=== PATIENT | male | born 1995 | race African-American/Black ===

== ENCOUNTER 2018-03-18 13:52 | Emergency (ER) | payer OTHER ==
[~2018-03-18] VITALS: Ht 180.3 cm; Wt 68.2 kg
[~2018-03-18 13:52] MED LIST: DOXYCYCLINE 10100 MG PO; INSULIN HUMA100 U/ML SC; LANTUS100 U/ML SC; NEURONTIN800 MG/TAB PO; REQUIP2 MG PO; ROBAXIN 50500 MG/TAB PO
[2018-03-18 13:59] VITALS: TEMP 98.1
[2018-03-18 14:48] LABS: BASO % 0.5 % (0.0-2.0); EOS % 0.2 % (0-4.0); GRAN # 2.4 (1.4-6.5); GRAN % 56.8 % (42.2-75.2); HEMATOCRIT 39.3 % (42.0-52.0); HEMOGLOBIN 14.2 g/dl (13.5-18.0); LYMPH # 1.4 (1.2-3.4); LYMPH % 33.8 % (20.0-51.0); MEAN CELL VOLUME 84 fl (80.0-100.0); MEAN CORPUSCULAR HEMOGLOBIN 30 pg (27.0-31.0); MEAN CORPUSCULAR HGB CONC 36 g/dl (33.0-37.0); MEAN PLATELET VOLUME 10.1 fl (7.4-10.4); MONO # 0.4 (0.1-0.6); MONO % 8.5 % (1.7-9.3); PLATELET COUNT 344 K/mm3 (130-400); RED BLOOD COUNT 4.67 M/mm3 (4.20-5.60)
[2018-03-18 14:59] LABS: ALANINE AMINOTRANSFERASE 22 U/L (21-72); ALBUMIN 3.7 gm/dL (3.5-5.0); ALKALINE PHOSPHATASE 111 U/L (50-136); ANION GAP 12 mmol/L (7-16); AST,SGOT 17 U/L (15-37); BILIRUBIN,TOTAL 0.4 mg/dL (0.0-1.0); BLOOD UREA NITROGEN 8 mg/dL (9-20); C-REACTIVE PROTEIN 0.6 mg/dL (0.0-0.9); CALCIUM 8.6 mg/dL (8.4-10.2); CARBON DIOXIDE 26 mmol/L (22-30); CHLORIDE 91 mmol/L (98-107); CREATININE, serum 0.47 mg/dL (0.66-1.25); POTASSIUM 3.4 mmol/L (3.4-5.0); SODIUM 129 mmol/L (137-145); TOTAL PROTEIN 6.5 gm/dL (6.4-8.2)
[2018-03-18 15:06] LABS: GLUCOSE 570 mg/dL (74-106)
[2018-03-18 15:07] LABS: ACETONE,SERUM NEGATIVE
[2018-03-18] MEDS ORDERED: NOVOLOG 100U100 U/M1 SQ (17:20)
[2018-03-18 17:30] LABS: COLLECTION METHOD CLEAN CATCH
[2018-03-18 17:39] LABS: PH 7 (5-8); SQUAMOUS EPITHELIAL 0-2 /hpf; URINE APPEARANCE Clear; URINE BACTERIA None Seen /hpf; URINE BILIRUBIN Negative (NEGATIVE); URINE BLOOD Negative (NEGATIVE); URINE COLOR Straw; URINE GLUCOSE 3+ (NEGATIVE); URINE KETONE Trace (NEGATIVE); URINE LEUKOCYTE ESTERASE Negative (NEGATIVE); URINE NITRATE Negative (NEGATIVE); URINE PROTEIN(semi-quant) Negative (NEGATIVE); URINE RBC 0-2 /hpf; URINE UROBILINOGEN Negative (NEGATIVE)
[2018-03-18] MEDS ORDERED: PHENERGAN 25 TA25 MG PO (17:41)
[2018-03-18 18:07] VITALS: BP 155/104; PULSE 110
== END 2018-03-18 18:07 | disposition home or self-care (01) ==
LOC: COL.ER 13:52
PROVIDERS: Physician Assistant
DX: K29.70 Gastritis, unspecified, without bleeding (principal); E11.9 Type 2 diabetes mellitus without complications; Z79.4 Long term (current) use of insulin; Z88.0 Allergy status to penicillin; F17.210 Nicotine dependence, cigarettes, uncomplicated
CPT/HCPCS: C9113; J1815; J7030

== ENCOUNTER → 2018-04-15 | Outpatient (CLI) | payer OTHER ==
[~2018-04-15] MED LIST changes: +NOVOLOG 100U100 U/M1 SQ; +PHENERGAN 25 TA25 MG PO
[2018-04-15 17:16] LABS: CALCIUM 9.5 mg/dL (8.4-10.2); CREATININE, serum 0.59 mg/dL (0.66-1.25); POTASSIUM 4.7 mmol/L (3.4-5.0)
== END ==
LOC: COL.LAB 14:53
PROVIDERS: Family Medicine
DX: R00.0 Tachycardia, unspecified (principal)

== ENCOUNTER 2018-08-18 11:44 | Emergency (ER) | payer OTHER ==
[~2018-08-18] VITALS: Ht 180.3 cm; Wt 73.2 kg
[2018-08-18 11:48] VITALS: TEMP 99.2
[2018-08-18] MEDS ORDERED: LEVEMIR100 U/ML SQ (12:07)
[2018-08-18] MEDS ORDERED: DOXYCYCLINE 10100 MG PO (12:10)
[2018-08-18] MEDS ORDERED: DOXYCYCLINE HY100 MG PO ×2 (12:19)
[2018-08-18] MEDS ORDERED: CEPHALEXIN500 M1 PO (12:30)
[2018-08-18 12:39] VITALS: BP 122/79; PULSE 100
== END 2018-08-18 12:40 | disposition home or self-care (01) ==
LOC: COL.ER 11:44
DX: K13.0 Diseases of lips (principal); E10.40 Type 1 diabetes mellitus with diabetic neuropathy, unspecified; F17.210 Nicotine dependence, cigarettes, uncomplicated; Z88.0 Allergy status to penicillin

== ENCOUNTER 2018-11-27 21:59 | Inpatient (IN) | payer OTHER ==
[~2018-11-27] VITALS: Ht 180.3 cm; Wt 71.9 kg
[~2018-11-27 21:59] MED LIST changes: +CEPHALEXIN500 M1 PO; +DOXYCYCLINE HY100 MG PO; +LEVEMIR100 U/ML SQ
[2018-11-28 00:18] LABS: BASO % 0.3 % (0.0-2.0); EOS % 0.2 % (0-4.0); GRAN # 8.9 (1.4-6.5); GRAN % 75.5 % (42.2-75.2); HEMOGLOBIN 15.3 g/dl (13.5-18.0); LYMPH # 1.9 (1.2-3.4); MEAN CELL VOLUME 90 fl (80.0-100.0); MEAN CORPUSCULAR HEMOGLOBIN 30 pg (27.0-31.0); MEAN CORPUSCULAR HGB CONC 34 g/dl (33.0-37.0); MEAN PLATELET VOLUME 10.4 fl (7.4-10.4); MONO # 0.9 (0.1-0.6); MONO % 7.7 % (1.7-9.3); PLATELET COUNT 322 K/mm3 (130-400); RED BLOOD COUNT 5.03 M/mm3 (4.20-5.60); REDCELL DISTRIBUTION WIDTH-CV 11.8 % (11.5-14.5)
[2018-11-28 00:33] LABS: ALANINE AMINOTRANSFERASE < 6 U/L (21-72); ALBUMIN 4.2 gm/dL (3.5-5.0); ALKALINE PHOSPHATASE 132 U/L (50-136); ANION GAP 17 mmol/L (7-16); AST,SGOT 17 U/L (15-37); BILIRUBIN,TOTAL 1.5 mg/dL (0.0-1.0); BLOOD UREA NITROGEN 26 mg/dL (9-20); C-REACTIVE PROTEIN 3.4 mg/dL (0.0-0.9); CALCIUM 9.4 mg/dL (8.4-10.2); CARBON DIOXIDE 22 mmol/L (22-30); CHLORIDE 93 mmol/L (98-107); CREATININE, serum 0.59 (0.66-1.25); GLUCOSE 374 mg/dL (74-106); POTASSIUM 4.4 mmol/L (3.4-5.0); SODIUM 132 mmol/L (137-145)
[2018-11-28 00:39] LABS: ACETONE,SERUM SMALL
[2018-11-28] MEDS ORDERED: CYMBALTA 30MG30 MG PO (01:14)
[2018-11-28 02:00] LABS: ARTERIAL BLD GAS O2 SATURATION 95.4 % (92-100); ARTERIAL BLOOD GAS BASE EXCESS -5.7 (-2-2); ARTERIAL BLOOD GAS HCO3 19.8 meq/L (22-26); ARTERIAL BLOOD GAS PCO2 38.8 mmHg (35-45); ARTERIAL BLOOD GAS PO2 87.3 mmHg (80-100); ARTERIAL BLOOD GAS pH 7.33 (7.35-7.45)
[2018-11-28 03:26] VITALS: BP 143/98; PULSE 121; TEMP 98.6
[2018-11-28 04:00] VITALS: BP 121/79; PULSE 120; TEMP 98.6
[2018-11-28 04:27] LABS: CALCIUM 8.7 mg/dL (8.4-10.2); CREATININE, serum 0.51 (0.66-1.25); MAGNESIUM 1.6 mg/dL (1.6-2.3); PHOSPHOROUS 3.9 mg/dL (2.5-4.5)
[2018-11-28 06:23] LABS: CALCIUM 8.4 mg/dL (8.4-10.2); CREATININE, serum 0.51 (0.66-1.25); POTASSIUM 4.4 mmol/L (3.4-5.0)
--- NOTE | 2018-11-28 07:32 | NUR ---
gave report to jorge garcia.
[2018-11-28 08:04] LABS: CALCIUM 8.6 mg/dL (8.4-10.2); CREATININE, serum 0.51 (0.66-1.25); POTASSIUM 4.4 mmol/L (3.4-5.0)
[2018-11-28 08:30] VITALS: BP 122/84; PULSE 118; TEMP 98.6
[2018-11-28 10:07] LABS: CALCIUM 8.5 mg/dL (8.4-10.2); CREATININE, serum 0.48 (0.66-1.25); POTASSIUM 4.3 mmol/L (3.4-5.0)
[2018-11-28 12:00] VITALS: BP 113/74; PULSE 114; TEMP 98.4
--- NOTE | 2018-11-28 12:01 | NUR ---
First visit from the community outreach coordinator. No needs right now.
--- NOTE | 2018-11-28 13:26 | NUR ---
SW attended clinical rounds to discuss discharge planning. Patient lives independently at home with his family. Patient's PCP is Dr Anyi Domingo and he obtain prescriptions from [facility]. Patient does not use DME or home health. Patient does not have a DPOA-HC and is not interested in completing one at this time. SW does not anticipate any discharge needs.
--- NOTE | 2018-11-28 13:38 | NUR ---
Pt resting in bed on right sided and prone position stating that thos positions are most comfortable d/t absess on his back. Denies pain anywhere else. Sx Consult called and , Dr. Stanley will be by to see patient. HR had been elevated, 110's, other VSS. Dr. Stephens restarted IVF NS at 100ml/hr for poss dehydration. Insulin gtt stopped and d/caryn and pt currently on sliding scale, has not required coverage and diet added. Mother currently at bedside. Will continue to moitor, pt status and update provder as needed.
--- NOTE | 2018-11-28 14:56 | NUR ---
Report given to YUDY Austin on SX unit. Pt Nicko taking out of fridge and will be handed to recieving RN. Aside from HR 107, VSS, pt c/o pain in left lower back and pain meds given and reported to recieving RN.
--- NOTE | 2018-11-28 15:20 | NUR ---
PATIENT ADMITED INTO ROOM 326 FROM ICU. PATIENT IS A&O. VSS. PATIENT REPORTS MILD DISCOMFORT AND WAS GIVEN IV DILAUDID BEFORE TRANSFER TO FLOOR. PATIENT INDEPENDENT IN ROOM. IV VANCO INFUSING. BS 87. ADA DIET. ORIENTED TO ROOM. CALL LIGHT IN REACH. NO FAMILY AT BEDSIDE.
[2018-11-28 16:11] VITALS: BP 114/68; PULSE 114; TEMP 98
--- NOTE | 2018-11-28 19:45 | NUR ---
Pt. sitting up in bed at this time. Pt. is A&OX3, assessment complete. INT to rt. and lt. forearms. Both sites patent. Pt. reports pain at a 8 on pain scale. Will give pain meds when available. Pt. voices understanding. Pt. denies further needs, call light within reach.
[2018-11-28 20:00] VITALS: BP 121/72; PULSE 113; TEMP 97.9
[2018-11-28 22:31] LABS: COLLECTION METHOD CLEAN CATCH
[2018-11-28 22:37] LABS: MUCOUS Present /lpf; PH 5 (5-8); SQUAMOUS EPITHELIAL 0-2 /hpf; URINE APPEARANCE Clear; URINE BACTERIA None Seen /hpf; URINE BILIRUBIN Negative (NEGATIVE); URINE BLOOD Negative (NEGATIVE); URINE COLOR Yellow; URINE GLUCOSE 3+ (NEGATIVE); URINE KETONE 2+ (NEGATIVE); URINE LEUKOCYTE ESTERASE Negative (NEGATIVE); URINE NITRATE Negative (NEGATIVE); URINE PROTEIN(semi-quant) Negative (NEGATIVE); URINE RBC 0-2 /hpf
[2018-11-29] VITALS: BP 135/72; PULSE 110; TEMP 98
[2018-11-29 00:41] LABS: COLLECTION METHOD CLEAN CATCH
[2018-11-29 00:47] LABS: MUCOUS Present /lpf; PH 6 (5-8); SQUAMOUS EPITHELIAL None Seen /hpf; URINE APPEARANCE Clear; URINE BACTERIA Rare /hpf; URINE BILIRUBIN Negative (NEGATIVE); URINE BLOOD Negative (NEGATIVE); URINE COLOR Yellow; URINE GLUCOSE 3+ (NEGATIVE); URINE KETONE Trace (NEGATIVE); URINE LEUKOCYTE ESTERASE Negative (NEGATIVE); URINE NITRATE Negative (NEGATIVE); URINE PROTEIN(semi-quant) Negative (NEGATIVE); URINE RBC 0-2 /hpf; URINE WBC 0-2 /hpf
[2018-11-29 04:00] VITALS: BP 115/69; PULSE 108; TEMP 97.7
--- NOTE | 2018-11-29 05:44 | NUR ---
Pt. slept off and on through the night. Pt. remains A&OX3. INT to bilateral forearms patent. Pt. has received pain meds through the night, see mar. Pt. also ambulated the halls x2, independently. Pt. reports pain at a 4 at this time. Pt. denies further needs, call light within reach.
[2018-11-29 06:16] LABS: BASO % 0.4 % (0.0-2.0); EOS % 0.7 % (0-4.0); GRAN # 3.6 (1.4-6.5); GRAN % 64.5 % (42.2-75.2); LYMPH # 1.5 (1.2-3.4); MEAN CELL VOLUME 90 fl (80.0-100.0); MEAN CORPUSCULAR HGB CONC 34 g/dl (33.0-37.0); MEAN PLATELET VOLUME 10.5 fl (7.4-10.4); MONO # 0.5 (0.1-0.6); PLATELET COUNT 287 K/mm3 (130-400); RED BLOOD COUNT 4.04 M/mm3 (4.20-5.60); REDCELL DISTRIBUTION WIDTH-CV 11.4 % (11.5-14.5)
[2018-11-29 06:19] LABS: HEMOGLOBIN 12.3 g/dl (13.5-18.0); MEAN CORPUSCULAR HEMOGLOBIN 30 pg (27.0-31.0)
[2018-11-29 06:20] LABS: HEMATOCRIT 36.3 % (42.0-52.0)
[2018-11-29 06:25] LABS: CALCIUM 8.9 mg/dL (8.4-10.2); CREATININE, serum 0.51 (0.66-1.25); POTASSIUM 4.5 mmol/L (3.4-5.0)
--- NOTE | 2018-11-29 06:40 | NUR ---
appears to be dozing, awakens easily, bedside shift report received from YUDY Triana
--- NOTE | 2018-11-29 07:25 | NUR ---
c/o pain to back and along left side 03/04, medicated with dilaudid 0.5mg slow IV, full assessment completed, see interventions for further info, will wait a while to order breakfast, denies further needs
[2018-11-29 08:24] VITALS: BP 100/50; PULSE 106; TEMP 97.4
[2018-11-29 08:50] LABS: COLLECTION METHOD CLEAN CATCH
[2018-11-29 08:55] LABS: MUCOUS Present /lpf; PH 6 (5-8); SQUAMOUS EPITHELIAL None Seen /hpf; URINE APPEARANCE Clear; URINE BACTERIA None Seen /hpf; URINE BILIRUBIN Negative (NEGATIVE); URINE BLOOD Negative (NEGATIVE); URINE COLOR Yellow; URINE GLUCOSE 3+ (NEGATIVE); URINE KETONE Negative (NEGATIVE); URINE LEUKOCYTE ESTERASE Negative (NEGATIVE); URINE NITRATE Negative (NEGATIVE); URINE PROTEIN(semi-quant) Negative (NEGATIVE); URINE RBC None Seen /hpf; URINE UROBILINOGEN Negative (NEGATIVE); URINE WBC 0-2 /hpf
--- NOTE | 2018-11-29 09:23 | NUR ---
resting in bed and denies needs
--- NOTE | 2018-11-29 10:30 | NUR ---
beginning to c/o pain to left back and side, medicated with hydrocodone 5mg 2 tabs
--- NOTE | 2018-11-29 10:46 | NUR ---
Dr. Stephens and care team in to see patient, patient is up and about in room independently and ready to eat breakfast
--- NOTE | 2018-11-29 11:30 | NUR ---
up and ambulating in delacruz
--- NOTE | 2018-11-29 12:15 | NUR ---
Dr Stanley was in and removed packing from abscess area on left back, area is now repacked with 1/4 inch iodoform gauze and covered with telfa gauze, he c/os of pain to this area after physicians in and were palpating and assessing the area, medicated with dilaudid 0.5mg slow IV,
[2018-11-29 12:23] VITALS: BP 118/78; PULSE 114; TEMP 97.5
--- NOTE | 2018-11-29 12:33 | NUR ---
bllod sugar was 96 and given juice per his request
--- NOTE | 2018-11-29 14:50 | NUR ---
resting in bed looking at his phone, denies needs
--- NOTE | 2018-11-29 15:45 | NUR ---
appears to now be sleeping, in bed with lights off, eyes closed, resp quiet and easy
[2018-11-29 16:46] VITALS: BP 120/75; PULSE 109; TEMP 97.7
--- NOTE | 2018-11-29 17:16 | NUR ---
sitting up in bed ready to eat supper, insulin given as ordered
--- NOTE | 2018-11-29 19:11 | NUR ---
bedside shift report given to YUDY Damon
[2018-11-29 19:42] VITALS: BP 119/71; PULSE 112; TEMP 97.5
--- NOTE | 2018-11-29 20:59 | NUR ---
Shift assessment complete. Pt resting in bed, awake, a&o, cooperative c cares. Pt c/o continued pain to L flank abcess; recent pain aviation medicine specialist, will monitor. Abcess noted to L flank, dressing intact c mod drainge present, will change dressing per order. INT x2 patent. Pt denies any other needs or c/o. Call light in reach, will monitor.
[2018-11-30] VITALS: BP 120/72; PULSE 103; TEMP 98.3
--- NOTE | 2018-11-30 06:15 | NUR ---
Pt resting in bed, condition unchanged. Pt has had persistant pain rated 5-7/10 this shift, reports "these pain meds ain't helping like they used too" pt also states "I think that (abcess) needs drained again". Pt frequently req PRN pain medication. Pt has had few other requests. Dressing changed at 2300 last noc et remains C/D/I at this time. Denies needs at this time. Call light in reach.
--- NOTE | 2018-11-30 07:55 | NUR ---
sitting up in bed eating breakfast, c/o pain 02/01 and medicated with dilaudid 0.5mg slow IV
[2018-11-30 08:08] LABS: BASO % 0.6 % (0.0-2.0); EOS # 0.1 (0.0-0.7); EOS % 1.2 % (0-4.0); GRAN # 2.6 (1.4-6.5); GRAN % 49.5 % (42.2-75.2); HEMATOCRIT 34.8 % (42.0-52.0); HEMOGLOBIN 11.8 g/dl (13.5-18.0); LYMPH # 2.1 (1.2-3.4); LYMPH % 41.5 % (20.0-51.0); MEAN CELL VOLUME 90 fl (80.0-100.0); MEAN CORPUSCULAR HEMOGLOBIN 31 pg (27.0-31.0); MEAN CORPUSCULAR HGB CONC 34 g/dl (33.0-37.0); MEAN PLATELET VOLUME 10.2 fl (7.4-10.4); MONO # 0.4 (0.1-0.6); PLATELET COUNT 308 K/mm3 (130-400); RED BLOOD COUNT 3.87 M/mm3 (4.20-5.60); REDCELL DISTRIBUTION WIDTH-CV 11.7 % (11.5-14.5)
[2018-11-30 08:15] LABS: CREATININE, serum 0.48 (0.66-1.25)
[2018-11-30 08:27] VITALS: BP 118/64; PULSE 113; TEMP 98.7
--- NOTE | 2018-11-30 08:37 | NUR ---
full assessment completed, see interventions for further info, states relief from dilaudid
--- NOTE | 2018-11-30 10:07 | NUR ---
entered room and patietn states he feels like his blood sugar is low, blood sugar obtained and results are 68, will provide juice and pudding per his request
--- NOTE | 2018-11-30 10:40 | NUR ---
had juice and pudding and is feeling better now
--- NOTE | 2018-11-30 11:30 | NUR ---
Dr Stephens and care team in to see patient
[2018-11-30 12:03] VITALS: BP 136/90; PULSE 112; TEMP 98.2
[2018-11-30] MEDS ORDERED: NOVOLOG 100U100 U/M1 SQ (12:03)
[2018-11-30] MEDS ORDERED: LEVEMIR100 U/ML SQ (12:04)
--- NOTE | 2018-11-30 12:28 | NUR ---
c/o pain and medicated with hydrocodone 5mg 2 tabs, will plan discharge later
--- NOTE | 2018-11-30 14:00 | NUR ---
continues to c/o pain, medicated with dilaudid 0.5mg slow IV, dressing and packing to back removed, repacked and redressed with anthony ratliff, tolerated well
[2018-11-30] MEDS ORDERED: MONODOX100 PO (14:39)
[2018-11-30] MEDS ORDERED: NORCO 325 MG-51 TAB PO (14:46)
--- NOTE | 2018-11-30 16:10 | NUR ---
in bed and appears to be dozing, awakens easily and denies needs
--- NOTE | 2018-11-30 16:15 | NUR ---
has been sleeping and awake now, will have supper and then plan discharge, denies needs
[2018-11-30 16:21] VITALS: BP 149/96; PULSE 110; TEMP 98.2
--- NOTE | 2018-11-30 16:59 | NUR ---
sitting up and eating supper, c/o some pain and medicated with hydrocodone 5mg 2 tabs and also in anticipation of discharge
--- NOTE | 2018-11-30 17:30 | NUR ---
ready for discharge, discharge instructions given to patient, verbalizes understanding, discharged ambulatory
[2018-12-01] MEDS ORDERED: ATARAX 25MG25 MG/TAB PO (21:09)
[2018-12-01] MEDS ORDERED: CLEOCIN HCL300 MG PO (21:10)
== END 2018-11-30 17:30 | disposition home or self-care (01) | DRG 602 ==
LOC: COL.ER 21:59 → SURG 11-28 01:52 → ICU 11-28 01:52 → SURG 11-28 15:13
PROVIDERS: Emergency Medicine; Nurse Practitioner Family; Physician Assistant; ADMIT Hospitalist
DX: L02.212 Cutaneous abscess of back [any part, except buttock and flank] (principal); E11.10 Type 2 diabetes mellitus with ketoacidosis without coma; L03.312 Cellulitis of back [any part except buttock and flank]; Z79.4 Long term (current) use of insulin; F32.9 Major depressive disorder, single episode, unspecified; F17.210 Nicotine dependence, cigarettes, uncomplicated; Z88.0 Allergy status to penicillin; R00.0 Tachycardia, unspecified; E11.65 Type 2 diabetes mellitus with hyperglycemia
CPT/HCPCS: 99223-AI; 99232-AI; 99239; J1170; J1650; J1815; J2405; J3370; J3480; J7030; J7050

== ENCOUNTER 2018-12-01 18:46 | Emergency (ER) | payer OTHER ==
[~2018-12-01] VITALS: Ht 180.3 cm; Wt 72.7 kg
[~2018-12-01 18:46] MED LIST changes: +CYMBALTA 30MG30 MG PO; +MONODOX100 PO; +NORCO 325 MG-51 TAB PO
[2018-12-01 18:49] VITALS: TEMP 98
[2018-12-01 19:16] LABS: BASO % 0.4 % (0.0-2.0); EOS % 0.6 % (0-4.0); GRAN # 3.1 (1.4-6.5); GRAN % 59.3 % (42.2-75.2); HEMATOCRIT 37.9 % (42.0-52.0); LYMPH # 1.8 (1.2-3.4); MEAN CELL VOLUME 89 fl (80.0-100.0); MEAN CORPUSCULAR HEMOGLOBIN 30 pg (27.0-31.0); MEAN CORPUSCULAR HGB CONC 34 g/dl (33.0-37.0); MEAN PLATELET VOLUME 10.2 fl (7.4-10.4); MONO # 0.3 (0.1-0.6); MONO % 5.5 % (1.7-9.3); PLATELET COUNT 368 K/mm3 (130-400); RED BLOOD COUNT 4.27 M/mm3 (4.20-5.60); REDCELL DISTRIBUTION WIDTH-CV 11.6 % (11.5-14.5)
[2018-12-01 19:20] LABS: ALBUMIN 3.4 gm/dL (3.5-5.0); BILIRUBIN,TOTAL 0.3 mg/dL (0.0-1.0); CALCIUM 9.1 mg/dL (8.4-10.2); CREATININE, serum 0.46 (0.66-1.25); POTASSIUM 3.9 mmol/L (3.4-5.0); TOTAL PROTEIN 6.7 gm/dL (6.4-8.2)
[2018-12-01] MEDS ORDERED: ATARAX 25MG25 MG/TAB PO (21:09)
[2018-12-01] MEDS ORDERED: CLEOCIN HCL300 MG PO (21:10)
[2018-12-01 21:21] VITALS: BP 134/88; PULSE 112
== END 2018-12-01 21:23 | disposition home or self-care (01) ==
LOC: COL.ER 18:46
PROVIDERS: Emergency Medicine
DX: L29.9 Pruritus, unspecified (principal); M79.89 Other specified soft tissue disorders; E11.9 Type 2 diabetes mellitus without complications; F17.210 Nicotine dependence, cigarettes, uncomplicated; Z79.4 Long term (current) use of insulin
CPT/HCPCS: J1885

== ENCOUNTER 2019-01-17 17:41 | Emergency (ER) | payer OTHER ==
[~2019-01-17] VITALS: Ht 180.3 cm; Wt 72.7 kg
[~2019-01-17 17:41] MED LIST changes: +ATARAX 25MG25 MG/TAB PO; +CLEOCIN HCL300 MG PO
[2019-01-17 17:52] VITALS: TEMP 98.5
[2019-01-17] MEDS ORDERED: NORCO 325 MG-51 TAB PO (18:15)
[2019-01-17] MEDS ORDERED: DOXYCYCLINE 10100 MG PO (18:15)
[2019-01-17 18:29] VITALS: BP 103/77; PULSE 127
== END 2019-01-17 18:32 | disposition home or self-care (01) ==
LOC: COL.ER 17:41
DX: L02.212 Cutaneous abscess of back [any part, except buttock and flank] (principal); E11.9 Type 2 diabetes mellitus without complications; F17.210 Nicotine dependence, cigarettes, uncomplicated; Z79.4 Long term (current) use of insulin

== ENCOUNTER → 2019-08-30 | Outpatient (CLI) | payer OTHER ==
[2019-08-30 18:37] LABS: BASO % 0.2 % (0.0-2.0); EOS % 0.4 % (0-4.0); GRAN # 2.7 (1.4-6.5); GRAN % 60.1 % (42.2-75.2); HEMATOCRIT 46.1 % (42.0-52.0); HEMOGLOBIN 15.5 g/dl (13.5-18.0); LYMPH # 1.5 (1.2-3.4); LYMPH % 33.2 % (20.0-51.0); MEAN CELL VOLUME 90 fl (80.0-100.0); MEAN CORPUSCULAR HEMOGLOBIN 30 pg (27.0-31.0); MEAN CORPUSCULAR HGB CONC 34 g/dl (33.0-37.0); MEAN PLATELET VOLUME 11.7 fl (7.4-10.4); MONO # 0.3 (0.1-0.6); MONO % 5.7 % (1.7-9.3); PLATELET COUNT 327 K/mm3 (130-400); RED BLOOD COUNT 5.14 M/mm3 (4.20-5.60); REDCELL DISTRIBUTION WIDTH-CV 11.9 % (11.5-14.5)
[2019-08-30 18:42] LABS: CALCIUM 9.5 mg/dL (8.4-10.2); CREATININE, serum 0.54 (0.66-1.25); POTASSIUM 4.8 mmol/L (3.4-5.0)
== END ==
LOC: ZCOL.LAB 16:33
PROVIDERS: Physician Assistant
DX: R51 Headache (principal)

== ENCOUNTER 2019-11-14 13:20 | Emergency (ER) | payer OTHER ==
[~2019-11-14] VITALS: Ht 182.9 cm; Wt 72.7 kg
[2019-11-14 13:31] VITALS: TEMP 98
[2019-11-14 14:06] LABS: BASO % 0.3 % (0.0-2.0); EOS # 0.2 (0.0-0.7); EOS % 2.5 % (0-4.0); GRAN # 4.4 (1.4-6.5); GRAN % 68.7 % (42.2-75.2); LYMPH # 1.5 (1.2-3.4); LYMPH % 23.8 % (20.0-51.0); MEAN CELL VOLUME 85 fl (80.0-100.0); MEAN CORPUSCULAR HEMOGLOBIN 30 pg (27.0-31.0); MEAN CORPUSCULAR HGB CONC 35 g/dl (33.0-37.0); MEAN PLATELET VOLUME 10.2 fl (7.4-10.4); MONO # 0.3 (0.1-0.6); MONO % 4.4 % (1.7-9.3); PLATELET COUNT 288 K/mm3 (130-400); RED BLOOD COUNT 5.05 M/mm3 (4.20-5.60); REDCELL DISTRIBUTION WIDTH-CV 11.8 % (11.5-14.5)
[2019-11-14 14:16] LABS: ACETONE,SERUM SMALL
[2019-11-14 14:19] LABS: ALANINE AMINOTRANSFERASE 19 U/L (4-49); ALBUMIN 4.2 gm/dL (3.5-5.0); ALKALINE PHOSPHATASE 94 U/L (50-136); ANION GAP 12 mmol/L (7-16); AST,SGOT 33 U/L (15-37); BILIRUBIN,TOTAL 2.1 mg/dL (0.0-1.0); BLOOD UREA NITROGEN 30 mg/dL (9-20); CARBON DIOXIDE 22 mmol/L (22-30); CHLORIDE 92 mmol/L (98-107); CREATININE, serum 0.53 (0.66-1.25); GLUCOSE 311 mg/dL (74-106); POTASSIUM 4.2 mmol/L (3.4-5.0); SODIUM 127 mmol/L (137-145); TOTAL PROTEIN 7.3 gm/dL (6.4-8.2)
[2019-11-14 14:25] LABS: COLLECTION METHOD CLEAN CATCH
[2019-11-14 14:27] LABS: C-REACTIVE PROTEIN < 0.5 mg/dL (0.0-0.9); TROPONIN-I < 0.012 ng/mL (0.000-0.035)
[2019-11-14 14:42] LABS: MUCOUS Present /lpf; PH 5 (5-8); SQUAMOUS EPITHELIAL 0-2 /hpf; URINE APPEARANCE Clear; URINE BACTERIA None Seen /hpf; URINE BILIRUBIN Negative (NEGATIVE); URINE BLOOD Negative (NEGATIVE); URINE COLOR Yellow; URINE GLUCOSE 3+ (NEGATIVE); URINE KETONE 2+ (NEGATIVE); URINE LEUKOCYTE ESTERASE Trace (NEGATIVE); URINE NITRATE Negative (NEGATIVE); URINE PROTEIN(semi-quant) Negative (NEGATIVE); URINE UROBILINOGEN Negative (NEGATIVE)
[2019-11-14] MEDS ORDERED: CYMBALTA 60MG60 MG PO (15:14)
[2019-11-14] MEDS ORDERED: ZOFRAN 4MG T4 MG/TAB PO (15:34)
[2019-11-14] MEDS ORDERED: PROTONIX 40MG T40 MG PO (16:44)
[2019-11-14 17:11] VITALS: BP 112/69; PULSE 107
== END 2019-11-14 17:15 | disposition home or self-care (01) ==
LOC: COL.ER 13:20
PROVIDERS: Emergency Medicine
DX: R11.2 Nausea with vomiting, unspecified (principal); R19.7 Diarrhea, unspecified; E86.0 Dehydration; E11.65 Type 2 diabetes mellitus with hyperglycemia; R10.11 Right upper quadrant pain; R10.12 Left upper quadrant pain; R10.31 Right lower quadrant pain; R10.32 Left lower quadrant pain; F17.210 Nicotine dependence, cigarettes, uncomplicated
CPT/HCPCS: J1790; J1815; J2405; J3010; J7030

== ENCOUNTER 2020-10-01 17:08 | Emergency (ER) | payer OTHER ==
[~2020-10-01] VITALS: Ht 182.9 cm; Wt 72.7 kg
[~2020-10-01 17:08] MED LIST changes: +CYMBALTA 60MG60 MG PO; +PROTONIX 40MG T40 MG PO; +ZOFRAN 4MG T4 MG/TAB PO
[2020-10-01 17:32] VITALS: TEMP 98.7
[2020-10-01 18:22] LABS: BASO % 0.2 % (0.0-2.0); GRAN # 3.9 (1.4-6.5); GRAN % 68.5 % (42.2-75.2); HEMOGLOBIN 13.9 g/dl (13.5-18.0); LYMPH # 1.5 (1.2-3.4); LYMPH % 26.3 % (20.0-51.0); MEAN CELL VOLUME 88 fl (80.0-100.0); MEAN CORPUSCULAR HEMOGLOBIN 31 pg (27.0-31.0); MEAN CORPUSCULAR HGB CONC 35 g/dl (33.0-37.0); MEAN PLATELET VOLUME 10.2 fl (7.4-10.4); MONO # 0.3 (0.1-0.6); MONO % 4.8 % (1.7-9.3); PLATELET COUNT 322 K/mm3 (130-400); RED BLOOD COUNT 4.56 M/mm3 (4.20-5.60); REDCELL DISTRIBUTION WIDTH-CV 11.4 % (11.5-14.5)
[2020-10-01 18:34] LABS: ALBUMIN 3.7 gm/dL (3.5-5.0); BILIRUBIN,TOTAL 1.3 mg/dL (0.0-1.0); CALCIUM 8.5 mg/dL (8.4-10.2); CREATININE, serum 0.61 (0.66-1.25); POTASSIUM 3.9 mmol/L (3.4-5.0); TOTAL PROTEIN 6.6 gm/dL (6.4-8.2)
[2020-10-01 20:27] LABS: COLLECTION METHOD CLEAN CATCH
[2020-10-01 20:37] LABS: MUCOUS Present /lpf; PH 6 (5-8); SQUAMOUS EPITHELIAL 0-2 /hpf; URINE APPEARANCE Clear; URINE BACTERIA None Seen /hpf; URINE BILIRUBIN Negative (NEGATIVE); URINE BLOOD Negative (NEGATIVE); URINE COLOR Yellow; URINE GLUCOSE 3+ (NEGATIVE); URINE KETONE 2+ (NEGATIVE); URINE LEUKOCYTE ESTERASE Negative (NEGATIVE); URINE NITRATE Negative (NEGATIVE); URINE PROTEIN(semi-quant) 1+ (NEGATIVE); URINE RBC 0-2 /hpf; URINE UROBILINOGEN Negative (NEGATIVE)
[2020-10-02 00:23] VITALS: BP 159/102; PULSE 114
== END 2020-10-02 00:23 | disposition home or self-care (01) ==
LOC: COL.ER 17:08
PROVIDERS: Nurse Practitioner
DX: R11.2 Nausea with vomiting, unspecified (principal); R10.10 Upper abdominal pain, unspecified; E10.9 Type 1 diabetes mellitus without complications; M54.5 Low back pain; R55 Syncope and collapse; Z88.6 Allergy status to analgesic agent; Z88.0 Allergy status to penicillin; Z20.822 Contact with and (suspected) exposure to COVID-19
CPT/HCPCS: J1170; J2270; J2405; J2550; J7030

== ENCOUNTER 2021-09-10 16:38 | Emergency (ER) | payer MEDICAID ==
[~2021-09-10] VITALS: Ht 180.3 cm; Wt 72.7 kg
[2021-09-10 16:53] VITALS: TEMP 99.5
[2021-09-10 17:24] LABS: BASO % 0.4 % (0.0-2.0); EOS % 0.4 % (0.0-4.0); GRAN # 2.8 K/mm3 (1.4-6.5); GRAN % 52.1 % (42.2-75.2); HEMATOCRIT 37.6 % (42.0-52.0); HEMOGLOBIN 13.2 g/dl (13.5-18.0); LYMPH # 2.3 K/mm3 (1.2-3.4); LYMPH % 41.9 % (20.0-51.0); MEAN CELL VOLUME 89 fl (80.0-100.0); MEAN CORPUSCULAR HEMOGLOBIN 31 pg (27-31); MEAN CORPUSCULAR HGB CONC 35 g/dl (33.0-37.0); MEAN PLATELET VOLUME 9.9 fl (7.4-10.4); MONO # 0.3 K/mm3 (0.1-0.6); PLATELET COUNT 273 K/mm3 (130-400); RED BLOOD COUNT 4.24 M/mm3 (4.20-5.60)
[2021-09-10 17:55] LABS: ACETONE,SERUM NEGATIVE
[2021-09-10 18:08] LABS: ALANINE AMINOTRANSFERASE 23 U/L (0-55); ALKALINE PHOSPHATASE 100 U/L (40-150); ANION GAP 13 mmol/L (7-16); AST,SGOT 19 U/L (5-34); BILIRUBIN,TOTAL 1.1 mg/dL (0.2-1.2); BLOOD UREA NITROGEN 16 mg/dL (9-21); CALCIUM 9.3 mg/dL (8.4-10.2); CARBON DIOXIDE 26 mmol/L (22-29); CHLORIDE 98 mmol/L (98-107); CREATININE, serum 1.08 mg/dL (0.72-1.25); GLUCOSE 79 mg/dL (70-99); LIPASE 18 U/L (8-78); POTASSIUM 3.7 mmol/L (3.5-4.5); SODIUM 137 mmol/L (136-145); TOTAL PROTEIN 7.3 gm/dL (6.2-8.1)
[2021-09-10 22:00] VITALS: BP 142/89; PULSE 108
== END 2021-09-10 22:00 | disposition home or self-care (01) ==
LOC: COL.ER 16:38
PROVIDERS: Emergency Medicine
DX: M54.6 Pain in thoracic spine (principal); L91.0 Hypertrophic scar; E11.9 Type 2 diabetes mellitus without complications; F17.210 Nicotine dependence, cigarettes, uncomplicated
CPT/HCPCS: J3010; J7030

== ENCOUNTER 2021-11-07 08:11 | Day surgery (SDC) | payer MEDICAID ==
[~2021-11-07] VITALS: Ht 180.3 cm; Wt 76.3 kg
[2021-11-07] MEDS ORDERED: NOVOLIN R100 UNIT/1 SQ (09:27)
[2021-11-07] MEDS ORDERED: LANTUS SOLOS100 U/ML SQ (09:28)
[2021-11-07 10:30] VITALS: BP 108/62; PULSE 103
[2021-11-07 10:45] VITALS: BP 129/87; PULSE 102
[2021-11-07 11:00] VITALS: BP 141/101; PULSE 103
[2021-11-07 11:15] VITALS: BP 142/106; PULSE 103
--- NOTE | 2021-11-07 11:27 | NUR ---
1030 Pt returns from endo procedure via cart and RN assist to [facility] [place] [facility]. Pt ambulates from cart to recliner with RN assist. Monitors on and alarms set. Call light within reach. Report received from YUDY Morales. Pt alert and oriented. Pt requests water. Pt denies any pain or nausea. Pt's mom present in room. 1045 Pt taking drink well. No complications noted. 1125 Discharge instructions given to pt and pt's mom. All questions answered to their satisfaction. Handed to pt are a thank you card and discharge information. 1127 Pt transferred out of the hospital via wheelchair and this RN assist, to private vehicle driven by pt's mom.
[2021-11-07 16:23] VITALS: BP 153/96; PULSE 107; TEMP 98.6
== END 2021-11-07 11:27 | disposition home or self-care (01) ==
LOC: SDCO 08:11
DX: K52.9 Noninfective gastroenteritis and colitis, unspecified (principal); R11.2 Nausea with vomiting, unspecified; E11.43 Type 2 diabetes mellitus with diabetic autonomic (poly)neuropathy; K31.84 Gastroparesis; Z79.4 Long term (current) use of insulin; Z79.899 Other long term (current) drug therapy
CPT/HCPCS: J2704; J7030

== ENCOUNTER 2022-01-15 10:40 | Emergency (ER) | payer MEDICAID ==
[~2022-01-15] VITALS: Ht 182.9 cm; Wt 77.3 kg
[~2022-01-15 10:40] MED LIST changes: +LANTUS SOLOS100 U/ML SQ; +NOVOLIN R100 UNIT/1 SQ
[2022-01-15 11:08] VITALS: TEMP 98.4
[2022-01-15 12:42] LABS: BASO % 0.4 % (0.0-2.0); GRAN % 74.7 % (42.2-75.2); HEMOGLOBIN 12.8 g/dl (13.5-18.0); LYMPH # 1.1 K/mm3 (1.2-3.4); LYMPH % 19.9 % (20.0-51.0); MEAN CELL VOLUME 89 fl (80.0-100.0); MEAN CORPUSCULAR HEMOGLOBIN 31 pg (27-31); MEAN CORPUSCULAR HGB CONC 35 g/dl (33.0-37.0); MEAN PLATELET VOLUME 10.4 fl (7.4-10.4); MONO # 0.2 K/mm3 (0.1-0.6); MONO % 4.3 % (1.7-9.3); PLATELET COUNT 304 K/mm3 (130-400); RED BLOOD COUNT 4.14 M/mm3 (4.20-5.60); REDCELL DISTRIBUTION WIDTH-CV 11.5 % (11.5-14.5)
[2022-01-15 13:11] LABS: ALBUMIN 4.2 gm/dL (3.5-5.0); BILIRUBIN,TOTAL 1.4 mg/dL (0.2-1.2); CALCIUM 9.3 mg/dL (8.4-10.2); CREATININE, serum 1.09 mg/dL (0.72-1.25); POTASSIUM 3.9 mmol/L (3.5-4.5)
[2022-01-15 14:00] VITALS: BP 166/93
[2022-01-15] MEDS ORDERED: ZOFRAN ODT4 MG PO (14:33)
[2022-01-15 15:07] VITALS: PULSE 119
[2022-01-17] MEDS ORDERED: COMPAZINE 110 MG/TAB PO (15:58)
[2022-01-17] MEDS ORDERED: CARAFATE S1 GM/10 ML PO (15:58)
== END 2022-01-15 15:07 | disposition home or self-care (01) ==
LOC: COL.ER 10:40
PROVIDERS: Nurse Practitioner Primary Care
DX: S10.93XA Contusion of unspecified part of neck, initial encounter (principal); R11.2 Nausea with vomiting, unspecified; F17.210 Nicotine dependence, cigarettes, uncomplicated; Z28.310 Unvaccinated for COVID-19; W10.9XXA Fall (on) (from) unspecified stairs and steps, initial encounter
CPT/HCPCS: J0780; J1885; J2405; J2550; J7030

== ENCOUNTER 2022-02-10 21:50 | Inpatient (IN) | payer MEDICAID ==
[~2022-02-10] VITALS: Ht 182.9 cm; Wt 75.8 kg
[~2022-02-10 21:50] MED LIST changes: +CARAFATE S1 GM/10 ML PO; +COMPAZINE 110 MG/TAB PO; +ZOFRAN ODT4 MG PO
[2022-02-10 22:12] LABS: BASO % 0.3 % (0.0-2.0); GRAN # 5.3 K/mm3 (1.4-6.5); GRAN % 80.2 % (42.2-75.2); LYMPH # 1.1 K/mm3 (1.2-3.4); LYMPH % 16.8 % (20.0-51.0); MEAN CELL VOLUME 87 fl (80.0-100.0); MEAN CORPUSCULAR HEMOGLOBIN 31 pg (27-31); MEAN CORPUSCULAR HGB CONC 36 g/dl (33.0-37.0); MEAN PLATELET VOLUME 10.7 fl (7.4-10.4); MONO # 0.2 K/mm3 (0.1-0.6); MONO % 2.4 % (1.7-9.3); PLATELET COUNT 320 K/mm3 (130-400); RED BLOOD COUNT 3.86 M/mm3 (4.20-5.60)
[2022-02-10 22:16] LABS: HEMATOCRIT 33.4 % (42.0-52.0)
[2022-02-10 22:31] LABS: BILIRUBIN,TOTAL 1.2 mg/dL (0.2-1.2); CALCIUM 9.1 mg/dL (8.4-10.2); TOTAL PROTEIN 7.4 gm/dL (6.2-8.1)
[2022-02-11] MEDS ORDERED: PROTONIX20 MG PO (02:29)
[2022-02-11 03:22] LABS: COLLECTION METHOD CLEAN CATCH
[2022-02-11 03:29] LABS: MUCOUS Present (NOT PRESENT); PH 5 (5-8); SQUAMOUS EPITHELIAL None Seen /hpf (0-10); URINE APPEARANCE Clear (CLEAR/HAZY); URINE BACTERIA None Seen /hpf (NONE SEEN); URINE BLOOD Negative (NEGATIVE); URINE COLOR Yellow (YELLOW); URINE GLUCOSE 3+ (NEGATIVE); URINE KETONE 2+ (NEGATIVE); URINE NITRATE Negative (NEGATIVE); URINE PROTEIN(semi-quant) Negative (NEGATIVE); URINE RBC 0-2 /hpf (0-2); URINE UROBILINOGEN Negative (NEGATIVE)
[2022-02-11 03:35] LABS: TRICYCLIC ANTIDEPRESS URINE NEGATIVE
--- NOTE | 2022-02-11 04:30 | NUR ---
pt admitted to room 308 per cart accompanied by client technologies analyst, able to ambulate from delacruz to bed. IV present in LAC with NS infusing @125 cc/hr. pt c/o continued nausea even after meds given in ED. zofran 4mg given slow IVP. oriented to room, floor and plan of care. Irma GREENE, notified of glucose level of 330 in ED. is working on admission orders @this time.
[2022-02-11 04:35] VITALS: BP 125/68; PULSE 112; TEMP 98.8
--- NOTE | 2022-02-11 06:51 | NUR ---
6 units of IV insulin given x1 for BGM 332, SSI orders on chart
[2022-02-11 07:14] LABS: BASO % 0.1 % (0.0-2.0); GRAN # 7.9 K/mm3 (1.4-6.5); GRAN % 84.2 % (42.2-75.2); HEMOGLOBIN 10.3 g/dl (13.5-18.0); LYMPH # 1.2 K/mm3 (1.2-3.4); MEAN CELL VOLUME 91 fl (80.0-100.0); MEAN CORPUSCULAR HEMOGLOBIN 31 pg (27-31); MEAN CORPUSCULAR HGB CONC 34 g/dl (33.0-37.0); MEAN PLATELET VOLUME 11.1 fl (7.4-10.4); MONO # 0.2 K/mm3 (0.1-0.6); MONO % 2.5 % (1.7-9.3); PLATELET COUNT 270 K/mm3 (130-400); RED BLOOD COUNT 3.37 M/mm3 (4.20-5.60); REDCELL DISTRIBUTION WIDTH-CV 11.6 % (11.5-14.5)
[2022-02-11 07:16] LABS: HEMATOCRIT 30.6 % (42.0-52.0)
[2022-02-11 07:28] LABS: CALCIUM 8.1 mg/dL (8.4-10.2); CREATININE, serum 0.95 mg/dL (0.72-1.25); MAGNESIUM 1.6 mg/dL (1.6-2.6); POTASSIUM 4.2 mmol/L (3.5-4.5)
[2022-02-11 07:59] VITALS: BP 114/61; PULSE 110; TEMP 98.7
--- NOTE | 2022-02-11 11:39 | NUR ---
well service floor worker met with patient to complete intake and discuss discharge plan. Patient reports that he lives at home with his grandparents in [place]. Patient reports that he is independent with his ADL's but is legally blind and utilizes a white cane to assist with mobility. Patient has no home oxygen needs. Patient reports that he is still seeing doctor Nabila Mendoza for PCP needs. Patient utilizes [facility] for prescriptions. Patient states that he does have a DPOA-HC established and it is his grandmother Gail ([phone]). Patient is planning on returning home once medically ready. Discharge plan: Home with grandparents
[2022-02-11 11:50] VITALS: BP 159/91; PULSE 120; TEMP 99.3
--- NOTE | 2022-02-11 14:51 | NUR ---
PATIENT ALERT AND ORIENTED X3. VSS WITH THE EXCEPTION OF TACHYCARDIA. PATIENT REPORTS HE MIGHT BE SLIGHTLY DEHYDRATED. PATIENT ENCOURAGED TO DRINK MORE FLUIDS. ASSESSMENT PERFORMED. AM MEDS ADMINISTERED. PATIENT REPORTS PAIN IN THROAT FROM CONTINUOUS VOMITING. PATIENT REQUESTS MEDICATION NOT ON EMAR FOR NAUSEA/VOMITING. IV TO LEFT AC FLUSHES WELL, HAS NS RUNNING AT 125/HOUR. PATIENT ON ROOM AIR. CALL LIGHT WITHIN REACH.
[2022-02-11 15:18] VITALS: BP 150/86; PULSE 113; TEMP 98.1
[2022-02-11 20:25] VITALS: BP 168/96; PULSE 119; TEMP 98.6
--- NOTE | 2022-02-11 21:00 | NUR ---
pt c/o epigastric and throat pain, HR >100, notified Elisha Shahid APRN, see EMAR for meds given.
[2022-02-11 22:55] VITALS: BP 189/115; PULSE 118; TEMP 98
--- NOTE | 2022-02-12 00:20 | NUR ---
2330-BP 189/115 notified Elisha Crain APRN order rec'd and gave 10mg IV Labetolol, BP down to 121/67 after 30 mins.
[2022-02-12 00:28] VITALS: BP 121/67
[2022-02-12 04:22] VITALS: BP 131/63; PULSE 106; TEMP 98.2
--- NOTE | 2022-02-12 06:56 | NUR ---
pt c/o epigastric and throat pain all shift, rates as 10, maalox and morphine given, bp improved after labetelol, SSI given last evening. phenergan given x1 for nausea. up ad arturo in room, on RA. IVF infusing @125cc/hr per piv.
[2022-02-12 07:49] VITALS: BP 136/87; PULSE 110; TEMP 98.4
--- NOTE | 2022-02-12 09:31 | NUR ---
PATIENT COMPLAINING OF ABDOMINAL PAIN THAT HE DESCRIBES A BURNING SENSATION ALL OVER. ALSO COMPLAINING OF NAUSEA AND VOMITING. PRN MEDICATIONS TO TREAT THIS HAVE BEEN GIVEN PER EMAR WITH NO RELIEF. WILL NOTIFY HOSPITALIST.
[2022-02-12 11:53] VITALS: BP 156/106; PULSE 109; TEMP 98.3
[2022-02-12 16:08] VITALS: BP 118/72; PULSE 105; TEMP 98.3
--- NOTE | 2022-02-12 17:04 | NUR ---
PATIENT DOING WELL THIS SHIFT. NEW ORDER OF REGLAN IV HAS SEEMED TO DECREASE NAUSEA. PATIENT HAS NOT HAD ANY EPISODES OF VOMITING SINCE THIS MORNING. WILL CONTINUE TO MONITOR.
[2022-02-12 20:50] VITALS: BP 139/87; PULSE 111; TEMP 99.1
--- NOTE | 2022-02-12 23:10 | NUR ---
Pt alert and oriented. Resting at this time. Denies vomiting this evening. Pt did report some nausea. Prn zofran and IV reglan administered per orders. Pt also reported a headache. I notified the provider and had prn tylenol ordered. Administered to the pt per orders. IV fluids continuing. Pt has poor apetite, but was able to tolerate drinking a vanilla ensure shake. FSBS 163. Shift assessment performed. Medications administered per orders and education provided. VS stable. Afebrile. On room air. HR runs in lower 100's. BP stable. No significant skin issues noted. Pt tolerating PO medications. Pt resting and does not report any questions at this time, will continue to monitor.
[2022-02-13 00:28] VITALS: BP 150/99; PULSE 109; TEMP 98.8
[2022-02-13 00:37] VITALS: BP 150/90
--- NOTE | 2022-02-13 01:33 | NUR ---
Pt complained of still having a headache and requested benadryl. Notified the provider and benadryl was ordered and administered per orders. Pt's BP was also 150/90 manually. Notified the provider, no changes at this time, will continue to monitor.
[2022-02-13 04:39] VITALS: BP 153/100; PULSE 103; TEMP 98
--- NOTE | 2022-02-13 05:22 | NUR ---
No adverse events overnight. Pt tolerated more PO intake with no vomiting. Pt had prn tylenol and benadryl x1 for headache and head congestion. Pt also had zofran x1 overnight for nausea. Continued with IV fluids and IV reglan per orders. Pt independent in room. VS stable. BP running elevated. Diastolic BP was 100 this morning, will administer prn labetolol per orders. Pt resting and does not report any questions at this time, will continue to monitor.
[2022-02-13 06:33] LABS: BASO % 0.4 % (0.0-2.0); EOS % 0.3 % (0.0-4.0); GRAN # 4.1 K/mm3 (1.4-6.5); GRAN % 60.8 % (42.2-75.2); HEMATOCRIT 31.9 % (42.0-52.0); HEMOGLOBIN 10.8 g/dl (13.5-18.0); LYMPH # 2.1 K/mm3 (1.2-3.4); MEAN CELL VOLUME 92 fl (80.0-100.0); MEAN CORPUSCULAR HEMOGLOBIN 31 pg (27-31); MEAN CORPUSCULAR HGB CONC 34 g/dl (33.0-37.0); MEAN PLATELET VOLUME 11.8 fl (7.4-10.4); MONO # 0.4 K/mm3 (0.1-0.6); MONO % 6.4 % (1.7-9.3); PLATELET COUNT 226 K/mm3 (130-400); RED BLOOD COUNT 3.48 M/mm3 (4.20-5.60); REDCELL DISTRIBUTION WIDTH-CV 11.8 % (11.5-14.5)
[2022-02-13 06:49] LABS: CALCIUM 8.3 mg/dL (8.4-10.2); CREATININE, serum 0.81 mg/dL (0.72-1.25); POTASSIUM 3.6 mmol/L (3.5-4.5)
[2022-02-13 07:11] VITALS: BP 142/98; TEMP 98.1
[2022-02-13] MEDS ORDERED: NORVASC 5MG5 MG/TAB PO ×2 (08:07)
[2022-02-13] MEDS ORDERED: REGLAN 5MG T5 MG/TAB PO (08:45)
[2022-02-13] MEDS ORDERED: TOPROL XL 25MG25 MG PO (09:54)
[2022-02-13 11:34] VITALS: BP 132/83; PULSE 106; TEMP 98
== END 2022-02-13 12:45 | disposition home or self-care (01) | DRG 74 ==
LOC: COL.ER 21:50 → MEDICAL 02-11 01:48 → EDBEDREQTM 02-11 03:52 → MEDICAL 02-11 21:00
PROVIDERS: Family Medicine; Physician Assistant; Student in an Organized Health Care Education/Training Program; ADMIT Family Medicine
DX: E10.43 Type 1 diabetes mellitus with diabetic autonomic (poly)neuropathy (principal); K31.84 Gastroparesis; H57.89 Other specified disorders of eye and adnexa; F12.90 Cannabis use, unspecified, uncomplicated; I95.9 Hypotension, unspecified; R55 Syncope and collapse; I10 Essential (primary) hypertension; R00.0 Tachycardia, unspecified; Z20.822 Contact with and (suspected) exposure to COVID-19; E86.0 Dehydration; E10.65 Type 1 diabetes mellitus with hyperglycemia; Z88.0 Allergy status to penicillin
CPT/HCPCS: J1200; J1650; J1790; J1815; J2270; J2405; J2550; J2765; J3010; J3475; J7030

== ENCOUNTER 2022-04-18 15:54 | Emergency (ER) | payer MEDICAID ==
[~2022-04-18] VITALS: Ht 182.9 cm; Wt 72.7 kg
[~2022-04-18 15:54] MED LIST changes: +NORVASC 5MG5 MG/TAB PO; +PROTONIX20 MG PO; +REGLAN 5MG T5 MG/TAB PO; +TOPROL XL 25MG25 MG PO
[2022-04-18 16:00] VITALS: TEMP 98.6
[2022-04-18 16:52] LABS: BASO % 0.1 % (0.0-2.0); GRAN # 6.8 K/mm3 (1.4-6.5); GRAN % 75.2 % (42.2-75.2); HEMATOCRIT 37.6 % (42.0-52.0); HEMOGLOBIN 12.8 g/dl (13.5-18.0); LYMPH # 1.7 K/mm3 (1.2-3.4); LYMPH % 18.7 % (20.0-51.0); MEAN CELL VOLUME 90 fl (80.0-100.0); MEAN CORPUSCULAR HEMOGLOBIN 31 pg (27-31); MEAN CORPUSCULAR HGB CONC 34 g/dl (33.0-37.0); MEAN PLATELET VOLUME 10.5 fl (7.4-10.4); MONO # 0.5 K/mm3 (0.1-0.6); MONO % 5.8 % (1.7-9.3); PLATELET COUNT 297 K/mm3 (130-400)
[2022-04-18 17:07] LABS: ALBUMIN 4.1 gm/dL (3.5-5.0); BILIRUBIN,TOTAL 1.7 mg/dL (0.2-1.2); C-REACTIVE PROTEIN 0.25 mg/dL (0.00-0.50); CALCIUM 9.4 mg/dL (8.4-10.2); CREATININE, serum 1.09 mg/dL (0.72-1.25); POTASSIUM 4.1 mmol/L (3.5-4.5); TOTAL PROTEIN 7.9 gm/dL (6.2-8.1)
[2022-04-18 18:15] VITALS: BP 134/96; PULSE 108
[2022-04-18] MEDS ORDERED: ZOFRAN ODT4 MG PO (18:46)
== END 2022-04-18 18:15 | disposition home or self-care (01) ==
LOC: COL.ER 15:54
PROVIDERS: Nurse Practitioner
DX: E10.43 Type 1 diabetes mellitus with diabetic autonomic (poly)neuropathy (principal); K31.84 Gastroparesis; Z88.5 Allergy status to narcotic agent; Z28.310 Unvaccinated for COVID-19
CPT/HCPCS: J2405; J2550; J2765; J3010; J7030

== ENCOUNTER 2023-03-13 10:55 | Inpatient (IN) | payer MEDICAID ==
[~2023-03-13] VITALS: Ht 182.9 cm; Wt 78.0 kg
[~2023-03-13 10:55] MED LIST changes: -NOVOLIN R100 UNIT/1 SQ; +NOVOLOG FLEX100 U/ML INJ; +PROMETHAZINE12.5 M5 PO
[2023-03-13 11:27] LABS: BASO % 0.3 % (0.0-2.0); EOS % 0.1 % (0.0-4.0); GRAN # 8.8 K/mm3 (1.4-6.5); GRAN % 81.4 % (42.2-75.2); HEMOGLOBIN 12.1 g/dl (13.5-18.0); LYMPH # 1.5 K/mm3 (1.2-3.4); LYMPH % 13.5 % (20.0-51.0); MEAN CELL VOLUME 92 fl (80.0-100.0); MEAN CORPUSCULAR HEMOGLOBIN 31 pg (27-31); MEAN CORPUSCULAR HGB CONC 33 g/dl (33.0-37.0); MEAN PLATELET VOLUME 11.1 fl (7.4-10.4); MONO # 0.5 K/mm3 (0.1-0.6); MONO % 4.4 % (1.7-9.3); PLATELET COUNT 288 K/mm3 (130-400); RED BLOOD COUNT 3.97 M/mm3 (4.20-5.60); REDCELL DISTRIBUTION WIDTH-CV 12.2 % (11.5-14.5)
[2023-03-13 11:28] LABS: HEMATOCRIT 36.7 % (42.0-52.0)
[2023-03-13 11:44] LABS: ALBUMIN 4.4 gm/dL (3.5-5.0); C-REACTIVE PROTEIN 0.15 mg/dL (0.00-0.50); CALCIUM 9.9 mg/dL (8.4-10.2); CREATININE, serum 1.37 mg/dL (0.72-1.25)
[2023-03-13 14:43] LABS: COLLECTION METHOD CLEAN CATCH
[2023-03-13 15:04] LABS: URINE APPEARANCE Clear (CLEAR/HAZY); URINE BLOOD 1+ (NEGATIVE); URINE COLOR Yellow (YELLOW); URINE GLUCOSE 2+ (NEGATIVE); URINE KETONE 2+ (NEGATIVE); URINE NITRATE Negative (NEGATIVE); URINE PROTEIN(semi-quant) 1+ (NEGATIVE); URINE UROBILINOGEN 0.2 E.U/dL (0.2-1.0)
[2023-03-13 15:09] LABS: MUCOUS Present (NOT PRESENT); SQUAMOUS EPITHELIAL 0-2 /hpf (0-10); URINE BACTERIA None Seen /hpf (NONE SEEN); URINE RBC 0-2 /hpf (0-2)
[2023-03-13 17:10] VITALS: BP 135/89; PULSE 115; TEMP 98.1
[2023-03-13] MEDS ORDERED: LOMOTIL 0.025 M1 TAB PO (17:43)
--- NOTE | 2023-03-13 18:21 | NUR ---
JOSUÉ WAS ADMITTED TO MEDICAL UNIT FROM ED, ASSESSMENT AND UNIT INTAKE COMPLETE. HE IS A&O X4, ORIENTED TO ROOM AND CALL LIGHT WITHIN REACH. JOSUÉ C/O 10 OUT OF 10 PAIN AND N/V/D. HE IS SLIGHTLY TACHYCARDIC, DENIES SOA AND LUNG SOUNDS ARE CLEAR BILATERALLY. RECENT PAIN ASSESSMENT @ 18:30, JOSUÉ RATES PAIN 7/10.
[2023-03-13 18:33] VITALS: BP_SYST 135
[2023-03-13 20:39] VITALS: BP 115/62; PULSE 113; TEMP 98.4
[2023-03-13 20:40] VITALS: BP_SYST 115
[2023-03-14] VITALS (12 sets, daily range): BP systolic 114–128; BP diastolic 67–89; PULSE 100–126; TEMP 97.5–99.3
--- NOTE | 2023-03-14 05:05 | NUR ---
ASSESSMENT COMPLETE FOR SYSTEMS LIBRARIAN. PT COMPLAINED OF BURNING ABD PAIN, NAUSEA AND SEASONAL ALLERGIES. PT GIVEN MORPHINE FOR PAIN. PT FELT MORPHINE ONLY TOOK THE EDGE OFF THE PAIN. HOSPITALIST CALLED. ERYTHROMYCIN ORDERED AND GIVEN. PT GIVEN ZOFRAN FOR NAUSEA. PT FELT THE ZOFRAN HELP. HOSPITALIST CALLED CONCERNING PT'S COMPLAINT OF ALLERGIES. ZYRTEC ORDERED AND GIVEN. A LITTLE BEFORE 2200HRS PT CALLED OUT STATING THAT HE FELT VERY HOT AND SWEATY AND REQUESTED THAT HIS BLOOD SUGAR BE TESTED. PT'S BS WAS 30. PT GIVEN 12.5GM OF DEXTROSE. PT'S BS RISED TO 96 15MIN LATER. PT'S MIDNIGHT DOSE OF NOVOLOG HELD AND PT'S MORNING BS WAS 140 AND JUST OVER THIRTY MINUTES LATE, PT'S BS WAS 129. WILL CONTINUE TO MONITOR AND PASS ALONG TO DAYSHIFT RN. DUE TO PT'S VISION, IT IS UNSAFE FOR SCD'S. CALL LIGHT WITHIN REACH.
[2023-03-14 07:48] LABS: CALCIUM 8.6 mg/dL (8.4-10.2); CREATININE, serum 0.96 mg/dL (0.72-1.25); MAGNESIUM 2.1 mg/dL (1.6-2.6); POTASSIUM 3.8 mmol/L (3.5-4.5)
--- NOTE | 2023-03-14 10:58 | NUR ---
SHIFT ASSESSMENT COMPLETE. VSS. A&OX4. MORNING MEDS GIVEN PER ORDER. PATIENT IS LYING IN BED ATTEMPTING TO SLEEP. PATIENT IS REPORTING SOME NAUSEA THIS AM AND PAIN TO ABD 8/10. PAIN MEDS GIVEN ORDERED AND ANTINAUSEA MED GIVEN ORDERED. PATIENT HAS NO OTHER REQUEST AT THIS TIME, CALL LIGHT IN REACH.
[2023-03-15] VITALS (10 sets, daily range): BP systolic 103–159; BP diastolic 61–99; PULSE 96–107; TEMP 98.2–99.1
--- NOTE | 2023-03-15 06:00 | NUR ---
ASSESSMENT COMPLETE FOR BILINGUAL INTERPRETER. PT CONTINUES WITH COMPLAINTS OF ABD BURNING AND NAUSEA. PT GIVEN MORPHINE, ZOFRAN AND PHENERGAN REQUESTED THROUGHOUT THE SHIFT. BLOOD GLUCOSE AND BLOOD PRESSURE REMAINED STABLE THROUGHOUT THE SHIFT. PT EXPRESSED NO ADDITIONED NEEDS. CALL LIGHT WITHIN REACH.
[2023-03-15] MEDS ORDERED: PROTONIX 40MG T40 MG (08:12)
[2023-03-15] MEDS ORDERED: TOPROL XL 25MG25 MG PO (08:12)
--- NOTE | 2023-03-15 10:34 | NUR ---
Patient in pleasant mood this morning. Shift assessment complete, no variances noted. Patient's gait is steady and he is ambulating self often. Patient complains of pain 7/10 in abdomen, PRN morphine administered. Insulin not administered due to low blood sugar of 87 around 0530 and patient's tendency to drop quickly. Patient stated he felt like his blood sugar was low around 1000, blood sugar obtained and noted to be 100. Patient waiting for his breakfast tray to be delivered. Patient resting in bed at this time with call light in reach. All needs met at this time.
--- NOTE | 2023-03-15 11:34 | NUR ---
Readiness Paraprofessional met with patient to discuss discharge planning. Patient lives in [place] with his grandmother, Gail (ph#[phone]). Patient sees Ruth Mendoza APRN at the [facility] for primary care. Patient stated his preferred pharmacy depends on what the medication is. Patient has used the [facility] pharmacy, [facility], and [facility] in the past. Patient is independent with ADLS. Patient uses a "walking stick" for ambulation and also has [employer] eyeglasses as he is legally blind. Patient advised he has DP- that designates his grandmother, Gail. Patient plans to return home at time of discharge. Discharge Plan; Home
--- NOTE | 2023-03-15 17:34 | NUR ---
Patient remains stable. Vital signs stable. Blood sugars have been 108 and 170. Insulin not administered due to tendency to drop quickly and patient eating minimal food. Patient states his appetite is small and he has to force himself to eat. Patient to be NPO after midnight for EGD and encouraged to eat a sufficient dinner prior to NPO status. Pain continues to abdomen and esophagus, patient states it feels burning. PRN morphine administered twice this shift and effective. Patient currently in bed with call light in reach, all needs met at this time.
[2023-03-16] VITALS (17 sets, daily range): BP systolic 103–163; BP diastolic 57–100; PULSE 83–98; TEMP 97.6–98.7
--- NOTE | 2023-03-16 05:00 | NUR ---
ASSESSMENT COMPLETE FOR BOXING TRAINER. PT CONTINUES TO COMPLAIN OF STOMACH BURNING AND NAUSEA. PT GIVEN MORPHINE AND PHENERGAN FOR PAIN AND NAUSEA. PT FELT THE MEDICATION WAS EFFECTIVE FOR A SHORT TIME. PT DENIED CHEST PAIN, PALPITATIONS, SOB, V,D OR DIZZINESS. PT NPO AT MIDNIGHT. CALL LIGHT WITHIN REACH.
[2023-03-16 07:15] LABS: BASO % 0.5 % (0.0-2.0); EOS # 0.1 K/mm3 (0.0-0.7); EOS % 1.3 % (0.0-4.0); GRAN # 2.2 K/mm3 (1.4-6.5); GRAN % 39.2 % (42.2-75.2); LYMPH # 2.9 K/mm3 (1.2-3.4); LYMPH % 51.8 % (20.0-51.0); MEAN CELL VOLUME 89 fl (80.0-100.0); MEAN CORPUSCULAR HGB CONC 35 g/dl (33.0-37.0); MEAN PLATELET VOLUME 11.3 fl (7.4-10.4); MONO # 0.4 K/mm3 (0.1-0.6); MONO % 7.2 % (1.7-9.3); PLATELET COUNT 245 K/mm3 (130-400); RED BLOOD COUNT 3.27 M/mm3 (4.20-5.60); REDCELL DISTRIBUTION WIDTH-CV 11.3 % (11.5-14.5)
[2023-03-16 07:25] LABS: MEAN CORPUSCULAR HEMOGLOBIN 31 pg (27-31)
[2023-03-16 07:29] LABS: CALCIUM 8.6 mg/dL (8.4-10.2); CREATININE, serum 1.08 mg/dL (0.72-1.25); POTASSIUM 3.7 mmol/L (3.5-4.5)
--- NOTE | 2023-03-16 08:51 | NUR ---
Patient off unit around 0845 for endoscopy procedure. Patient sent with ticket to ride form filled out, and consents signed. NPO status maintained prior to procedure. No new variances noted during assessments. Blood sugar low, insulin held. Patient voiced no concerns prior to leaving.
--- NOTE | 2023-03-16 12:22 | NUR ---
Patient returned to floor around 0935. Vital signs stable, patient alert and oriented x4. Blood sugar 90. Tolerating sips of water. Patient denies pain or discomfort at this time. Fluids continue to run per orders. Patient in bed with call light in reach.
--- NOTE | 2023-03-16 12:34 | NUR ---
BP noted to trend upward, Metoprolol administered. Patient denies feeling pain or discomfort.
--- NOTE | 2023-03-16 12:35 | NUR ---
BP decreased after metoprolol, patient remains stable. Patient ambulating per baseline and tolerating food and water. Patient voices no concerns other than discharge planning. Patient in bed with call light in reach, all needs met at this time.
--- NOTE | 2023-03-16 15:31 | NUR ---
Patient remains stable following EGD. Denies pain or discomfort. Patient stated like he felt his blood sugar was high, blood sugar obtained and noted to be 133. Patient is tolerating meals well and is finishing 100%, states he feels his appetite is coming back. Patient currently in bed with call light in reach, ambulates self around room frequently. All needs met at this time.
--- NOTE | 2023-03-16 16:18 | NUR ---
Patient in good mood due to return of appetite, states he ate too fast that his abdomen and throat are in moderate pain. PRN morphine administered. Patient currently sitting up in bed with call light in reach, all needs met at this time.
[2023-03-17 03:34] VITALS: BP 112/83; PULSE 92; TEMP 98.1
[2023-03-17 03:35] VITALS: BP_SYST 112
--- NOTE | 2023-03-17 05:00 | NUR ---
ASSESSMENT COMPLETE FOR LOT ATTENDANT. PT STATES HE FEELS BETTER AND HIS APPETITE IS MUCH BETTER. PT DID HAVE SOME NAUSEA TONIGHT, BUT LESS THAN BEFORE. PT GIVEN PHENERGAN FOR NAUSEA. PT FELT THE PHENERGAN RELIEVED HIS NAUSEA. PT IS STILL COMPLAINING OF STOMACH BURNING, BUT HE SAID IT HASN'T BEEN BAD. PT GIVEN MORPHINE FOR PAIN. PT EXPRESSED NOT ADDITIONAL NEEDS AT THIS TIME. CALL LIGHT WITHIN REACH.
[2023-03-17 06:35] LABS: BASO % 0.6 % (0.0-2.0); EOS # 0.1 K/mm3 (0.0-0.7); GRAN % 40.5 % (42.2-75.2); LYMPH # 2.4 K/mm3 (1.2-3.4); LYMPH % 47.8 % (20.0-51.0); MEAN CELL VOLUME 87 fl (80.0-100.0); MEAN CORPUSCULAR HGB CONC 35 g/dl (33.0-37.0); MONO # 0.5 K/mm3 (0.1-0.6); MONO % 8.9 % (1.7-9.3); PLATELET COUNT 228 K/mm3 (130-400); RED BLOOD COUNT 3.26 M/mm3 (4.20-5.60); REDCELL DISTRIBUTION WIDTH-CV 11.5 % (11.5-14.5)
[2023-03-17 06:38] LABS: HEMATOCRIT 28.4 % (42.0-52.0); HEMOGLOBIN 9.9 g/dl (13.5-18.0); MEAN CORPUSCULAR HEMOGLOBIN 30 pg (27-31)
[2023-03-17 07:05] LABS: CALCIUM 8.4 mg/dL (8.4-10.2); CREATININE, serum 1.04 mg/dL (0.72-1.25); MAGNESIUM 1.6 mg/dL (1.6-2.6); POTASSIUM 4.1 mmol/L (3.5-4.5)
[2023-03-17 07:42] VITALS: BP 135/78; PULSE 92; TEMP 98.2
--- NOTE | 2023-03-17 08:30 | NUR ---
PT AWAKE IN BED UPON ENTERING. PT REPORTS ABDOMINAL PAIN, GIVEN PRN MED. FLUIDS RUNNING PER ORDER. EXTRUDER OPERATOR HORIZONTAL NURSE AND PT REPORTING PREVIOUS HYPOGLYCEMIA WITH SCHEDULED INSULIN AND PER THIS NURSES JUDGEMENT NO INSULIN GIVEN THIS AM FOR PTS BLOOD GLUCOSE OF 158, PT AGREED. PT DENIES NEEDS AT THIS TIME, CALL LIGHT IN REACH
[2023-03-17 09:00] VITALS: BP_SYST 135
[2023-03-17] MEDS ORDERED: ZYPREXA2.5 MG PO (09:51)
[2023-03-17] MEDS ORDERED: ZYRTEC 10MG10 MG PO (09:51)
[2023-03-17] MEDS ORDERED: CARAFATE 1GM1 G PO (09:52)
[2023-03-17] MEDS ORDERED: ZOFRAN ODT8 MG PO (09:52)
[2023-03-17] MEDS ORDERED: PROTONIX 40MG T40 MG PO (09:53)
[2023-03-17] MEDS ORDERED: REGLAN 10MG10 MG/TAB PO (09:54)
[2023-03-17 12:00] VITALS: BP 119/75; PULSE 80
--- NOTE | 2023-03-17 12:09 | NUR ---
Initial visit: Manager Electrical stopped by room on rounds. Pt was resting and content. Pt has no needs right now. Manager Electrical will follow up as needed.
[2023-03-17 13:36] VITALS: BP_SYST 119
--- NOTE | 2023-03-17 13:39 | NUR ---
PT DRESSED IN PERSONAL CLOTHES AND IV DISCONTINUED. PT GIVEN DISCHARGE INSTRUCTIONS AND VERBALIZED UNDERSTANDING. PT DENIES NEEDS AT THIS TIME AND ESCORTED TO PERSONAL VEHICLE BY STAFF, AMBULATING WITH CANE.
== END 2023-03-17 13:46 | disposition home or self-care (01) | DRG 73 ==
LOC: COL.ER 10:55 → MEDICAL 15:43 → COL.ER 15:44 → MEDICAL 03-16 09:43
PROVIDERS: Internal Medicine Gastroenterology; Nurse Practitioner; Physician Assistant; ADMIT Internal Medicine
PROC: 0DB78ZX Excision of Stomach, Pylorus, Via Natural or Artificial Opening Endoscopic, Diagnostic (ICD-10-PCS; 2023-03-16)
PROC: 0DB98ZX Excision of Duodenum, Via Natural or Artificial Opening Endoscopic, Diagnostic (ICD-10-PCS; principal; 2023-03-16 10:45)
DX: E10.43 Type 1 diabetes mellitus with diabetic autonomic (poly)neuropathy (principal); K29.71 Gastritis, unspecified, with bleeding; N17.9 Acute kidney failure, unspecified; K31.84 Gastroparesis; E10.65 Type 1 diabetes mellitus with hyperglycemia; E10.42 Type 1 diabetes mellitus with diabetic polyneuropathy; K21.9 Gastro-esophageal reflux disease without esophagitis; K52.9 Noninfective gastroenteritis and colitis, unspecified; F32.A Depression, unspecified; R00.0 Tachycardia, unspecified; H54.62 Unqualified visual loss, left eye, normal vision right eye; Z87.891 Personal history of nicotine dependence; Z88.0 Allergy status to penicillin; Z88.5 Allergy status to narcotic agent
CPT/HCPCS: C9113; G0378; G0379; J1200; J1364; J1790; J1815; J2270; J2405; J2550; J2704; J2765; J3010; J7030

== ENCOUNTER 2023-04-28 12:37 | Emergency (ER) | payer MEDICAID ==
[~2023-04-28] VITALS: Ht 182.9 cm; Wt 77.7 kg
[~2023-04-28 12:37] MED LIST changes: +CARAFATE 1GM1 G PO; +LOMOTIL 0.025 M1 TAB PO; +PROTONIX 40MG T40 MG; +REGLAN 10MG10 MG/TAB PO; +ZOFRAN ODT8 MG PO; +ZYPREXA2.5 MG PO; +ZYRTEC 10MG10 MG PO
[2023-04-28 14:43] LABS: BASO % 0.3 % (0.0-2.0); GRAN # 5.1 K/mm3 (1.4-6.5); GRAN % 80.7 % (42.2-75.2); LYMPH # 1.1 K/mm3 (1.2-3.4); LYMPH % 16.5 % (20.0-51.0); MEAN CELL VOLUME 91 fl (80.0-100.0); MEAN CORPUSCULAR HEMOGLOBIN 30 pg (27-31); MEAN CORPUSCULAR HGB CONC 33 g/dl (33.0-37.0); MEAN PLATELET VOLUME 10.9 fl (7.4-10.4); MONO # 0.1 K/mm3 (0.1-0.6); MONO % 2.2 % (1.7-9.3); PLATELET COUNT 301 K/mm3 (130-400); RED BLOOD COUNT 4.04 M/mm3 (4.20-5.60); REDCELL DISTRIBUTION WIDTH-CV 11.9 % (11.5-14.5)
[2023-04-28 14:45] LABS: HEMATOCRIT 36.6 % (42.0-52.0)
[2023-04-28 14:58] LABS: ACETONE,SERUM NEGATIVE
[2023-04-28 14:59] LABS: ALANINE AMINOTRANSFERASE 21 U/L (0-55); ALBUMIN 4.1 gm/dL (3.5-5.0); ALKALINE PHOSPHATASE 103 U/L (40-150); ANION GAP 12 mmol/L (7-16); AST,SGOT 21 U/L (5-34); BILIRUBIN,TOTAL 1.3 mg/dL (0.2-1.2); BLOOD UREA NITROGEN 23 mg/dL (9-21); CALCIUM 9.5 mg/dL (8.4-10.2); CARBON DIOXIDE 23 mmol/L (22-29); CHLORIDE 103 mmol/L (98-107); CREATININE, serum 1.23 mg/dL (0.72-1.25); GLUCOSE 256 mg/dL (70-99); POTASSIUM 4.2 mmol/L (3.5-4.5); SODIUM 138 mmol/L (136-145); TOTAL PROTEIN 7.7 gm/dL (6.2-8.1)
[2023-04-28 16:41] VITALS: BP 109/67; PULSE 105; TEMP 98.8
[2023-04-30] MEDS ORDERED: PHENERGAN 25 TA25 MG PO (17:48)
== END 2023-04-28 16:41 | disposition home or self-care (01) ==
LOC: COL.ER 12:37
PROVIDERS: Family Medicine
DX: K31.84 Gastroparesis (principal); Z28.310 Unvaccinated for COVID-19
CPT/HCPCS: J1200; J1790; J7030

== ENCOUNTER → 2023-10-19 | Outpatient (CLI) | payer MEDICAID ==
[~2023-10-19] MED LIST changes: +Albuterol 0.083% Neb Soln 2.5 MG/3 ML UD IH ONE; +BLUE-EMU LIDOC1 EACH TP; +COMBIGAN 0.2%-0.5 ML OD; +HCTZ 25MG TAB25 MG PO; +Methacholine Vial A (Clear Label Base-Cntrl) IH ONE; +Methacholine Vial B (Red Label) 0.0625 MG/ML 3 ML VIAL.NEB IH ONE; +Methacholine Vial C (Orange Label) 0.25 MG/ML 3 ML VIAL.NEB IH ONE; +Methacholine Vial D (Yellow Label) 1 MG/ML 3 ML VIAL.NEB IH ONE; +Methacholine Vial E (Green Label) 4 MG/ML 3 ML VIAL.NEB IH ONE; +Methacholine Vial F (Blue Label) 16 MG/ML 3 ML VIAL.NEB IH ONE; +NORVASC 10MG10 MG PO; -NOVOLOG FLEX100 U/ML INJ; +NOVOLOG FLEX100 U/ML SQ; +PREDFORTE5ML OD
== END ==
LOC: COL.CARD 13:50
DX: R06.02 Shortness of breath (principal)
CPT/HCPCS: J7674

== ENCOUNTER 2024-01-17 20:42 | Inpatient (IN) | payer MEDICARE, MEDICAID ==
[~2024-01-17] VITALS: Ht 180.3 cm; Wt 51.2 kg
[~2024-01-17 20:42] MED LIST changes: -Albuterol 0.083% Neb Soln 2.5 MG/3 ML UD IH ONE; -Methacholine Vial A (Clear Label Base-Cntrl) IH ONE; -Methacholine Vial B (Red Label) 0.0625 MG/ML 3 ML VIAL.NEB IH ONE; -Methacholine Vial C (Orange Label) 0.25 MG/ML 3 ML VIAL.NEB IH ONE; -Methacholine Vial D (Yellow Label) 1 MG/ML 3 ML VIAL.NEB IH ONE; -Methacholine Vial E (Green Label) 4 MG/ML 3 ML VIAL.NEB IH ONE; -Methacholine Vial F (Blue Label) 16 MG/ML 3 ML VIAL.NEB IH ONE
[2024-01-17] MEDS ORDERED: diphenhydrAMINE 50 MG/ML 1 ML VIAL IV ONE (22:00)
[2024-01-17] MEDS ORDERED: NS 1,000 ML IV ONE (22:00)
[2024-01-17] MEDS ORDERED: Magnesium Sulfate 4% 50 ML IV ONE (22:00)
[2024-01-17 22:01] LABS: BASO % 0.3 % (0.0-2.0); EOS % 0.1 % (0.0-4.0); GRAN # 3.4 K/mm3 (1.4-6.5); GRAN % 49.7 % (42.2-75.2); HEMOGLOBIN 10.7 g/dl (13.5-18.0); LYMPH % 43.8 % (20.0-51.0); MEAN CELL VOLUME 90 fl (80.0-100.0); MEAN CORPUSCULAR HEMOGLOBIN 30 pg (27-31); MEAN CORPUSCULAR HGB CONC 33 g/dl (33.0-37.0); MEAN PLATELET VOLUME 10.6 fl (7.4-10.4); MONO # 0.4 K/mm3 (0.1-0.6); PLATELET COUNT 292 K/mm3 (130-400); RED BLOOD COUNT 3.56 M/mm3 (4.20-5.60); REDCELL DISTRIBUTION WIDTH-CV 11.9 % (11.5-14.5)
[2024-01-17 22:11] LABS: HEMATOCRIT 32.1 % (42.0-52.0)
[2024-01-17 22:18] LABS: TROPONIN-I < 0.010 ng/mL (0.00-0.033)
[2024-01-17 22:39] LABS: ALANINE AMINOTRANSFERASE 33 U/L (0-55); ALBUMIN 3.7 g/dL (3.5-5.0); ALKALINE PHOSPHATASE 74 U/L (40-150); ANION GAP 13 mmol/L (7-16); AST,SGOT 23 U/L (5-34); BILIRUBIN,TOTAL 1.3 mg/dL (0.2-1.2); BLOOD UREA NITROGEN 35 mg/dL (9-21); CALCIUM 9.1 mg/dL (8.4-10.2); CHLORIDE 95 mEq/L (98-107); CREATININE, serum 2.72 mg/dL (0.72-1.25); GLUCOSE 224 mg/dL (70-99); POTASSIUM 3.4 mEq/L (3.5-4.5); SODIUM 133 mEq/L (136-145); TOTAL PROTEIN 6.8 g/dl (6.2-8.1)
[2024-01-17] MEDS ORDERED: Ketorolac 15 MG/ML VIAL IV ONE (23:15)
[2024-01-17 23:18] LABS: MAGNESIUM 1.8 mg/dL (1.6-2.6)
[2024-01-18] VITALS (15 sets, daily range): BP systolic 113–150; BP diastolic 72–105; PULSE 82–92; TEMP 97.4–98.4
[2024-01-18] MEDS ORDERED: NS & 40 mEq KCl 1,000 ML IV SCH (00:30)
[2024-01-18] MEDS ORDERED: Ondansetron 4 MG/2 ML VIAL IV PRN (01:45)
[2024-01-18] MEDS ORDERED: Acetaminophen 325 MG TAB PO PRN (01:45)
[2024-01-18] MEDS ORDERED: LR 1,000 ML IV SCH (01:45)
[2024-01-18] MEDS ORDERED: REFRESH TEARS 330 ML OP (02:47)
[2024-01-18] MEDS ORDERED: ZYRTEC 10MG10 MG PO (02:47)
[2024-01-18] MEDS ORDERED: Carboxymethylcellulose PF Ophth 0.4 ML DROPPERETTE OP PRN (03:00)
[2024-01-18] MEDS ORDERED: Cetirizine 10 MG TAB PO PRN (03:00)
--- NOTE | 2024-01-18 03:26 | NUR ---
Patient arrived to medical unit from ER at approximately 0230. Alert and oriented, and able to make needs known. Had been very drowsy in ER, not staying awake to answer questions. Patient able to answer questions now. Complaining of level 9 headache, pounding. Dr. Benton notified. Peripheral IV to right AC with IV fluids running per orders. Denies SOB and dyspnea. LS CTA. HRR. BSAx4. No edema. IV fluid orders confirmed with Dr. Benton. Patient is to have 1 L NS with Potassium, then change fluids to LR. Updated MAR. Also clarified med rec with Dr. Benton, as orders were started on medications that he no longer takes. Patient given sandwich as requested. Voices no further questions, needs, or concerns at this time. In bed with call light within reach. High fall risk precautions in place. Bed alarm on.
[2024-01-18] MEDS ORDERED: SUMAtriptan 25 MG TAB PO PRN (05:15)
--- NOTE | 2024-01-18 06:14 | NUR ---
Patient given PRN Acetaminophen for headache, and reported it did not help. Called Dr. James, and new order received for Imitrex. Given per orders. Continues on IV fluids per orders. Voices no further questions, needs, or concerns at this time. In bed with call light within reach. High fall risk precautions in place. Bed alarm on.
[2024-01-18 06:50] LABS: CALCIUM 8.7 mg/dL (8.4-10.2); CREATININE, serum 2.18 mg/dL (0.72-1.25); POTASSIUM 3.7 mEq/L (3.5-4.5)
[2024-01-18] MEDS ORDERED: Metoclopramide 10 MG TAB PO SCH (07:30)
[2024-01-18] MEDS ORDERED: Insulin Lispro (HumaLOG) SQ SCH (08:00)
[2024-01-18] MEDS ORDERED: Heparin 5,000 UNITS/ML 1 ML VIAL SQ SCH (08:00)
[2024-01-18] MEDS ORDERED: Insulin Glargine-ygfn (Lantus) SQ SCH (09:00)
[2024-01-18] MEDS ORDERED: Pantoprazole 40 MG in NS 10 ML IV SCH (09:00)
--- NOTE | 2024-01-18 09:30 | NUR ---
patient alert and oriented x4. patient reports headache and neck pain at 7/10. patient on room air. fluids running per doctors order. patient bowels sounds are hypoactive.patient reports being blind from one of the eyes and partial blind of the other eye. Patient laying in bed. call light within reach. bed at lowest position.
--- NOTE | 2024-01-18 09:57 | NUR ---
Initial visit attempt: Patient sleeping, Post Exchange Manager left card offering Spiritual Care and God's blessings.
--- NOTE | 2024-01-18 10:59 | NUR ---
Social work student met with patient to discuss discharge planning. Patient lives in [place] with his grandmother Gail (ph#[phone]) and sees Dr. Mendoza for primary care. Patient uses [facility] [address] for medications and uses a guide cane. Patient is independent with ADLS and uses medicaid transportation or grandmother to get to and from appointments. Patient has DPOA that designates grandmother. Patient plans to return home at time of discharge. Discharge plan: home
[2024-01-18 12:10] LABS: COLLECTION METHOD CLEAN CATCH
[2024-01-18 12:25] LABS: URINE APPEARANCE CLOUDY (CLEAR/HAZY); URINE BLOOD NEGATIVE (NEGATIVE); URINE COLOR YELLOW (YELLOW); URINE GLUCOSE NEGATIVE (NEGATIVE); URINE KETONE TRACE (NEGATIVE); URINE NITRATE NEGATIVE (NEGATIVE); URINE PROTEIN(semi-quant) 1+ (NEGATIVE); URINE UROBILINOGEN 0.2 E.U/dL (0.2-1.0)
[2024-01-18 12:57] LABS: SQUAMOUS EPITHELIAL 0-2 /hpf (0-10)
[2024-01-18 12:58] LABS: URINE BACTERIA RARE /hpf (NONE SEEN)
[2024-01-18] MEDS ORDERED: OLANZapine 5 MG TAB PO SCH (21:00)
--- NOTE | 2024-01-18 22:59 | NUR ---
patient lying in bed, alert and oriented x4. denies chest pain and shortness of breath. reports headache rated 9/10, per request norco given, upon reassessment pain rated 8/10. IV in LAC is patent with LR running at 125 ml/hr, site is CDI. blind left eye and partial visual impairment in right eye noted. pt has no further needs, questions, or concerns at this time. fall precautions in place, call light within reach. will continue to monitor.
[2024-01-19 03:15] VITALS: BP 143/91; PULSE 84; TEMP 97.6
[2024-01-19 04:01] VITALS: BP_SYST 143
[2024-01-19 06:29] LABS: CREATININE, serum 1.22 mg/dL (0.72-1.25); POTASSIUM 3.7 mEq/L (3.5-4.5)
[2024-01-19 06:54] LABS: THYROID STIMULATING HORMONE 1.758 uIU/mL (0.350-4.940)
[2024-01-19 08:12] VITALS: BP 141/90; PULSE 89; TEMP 98.2
--- NOTE | 2024-01-19 08:40 | NUR ---
patient alert and oriented x4.patient on room air, patient reports slight headache doesn't want medication for it. patient fluids running per doctors orders.call light within reach. bed at lowest position.
[2024-01-19 09:17] VITALS: BP_SYST 141
--- NOTE | 2024-01-19 11:20 | NUR ---
PATIENT DISCHARGE ORDERS GIVEN. PATIENT DENIED ANY QUESTIONS. PATIENT VERBALIZED UNDERSTANDING. IV REMOVED. PATIENT ESCORTED OUT OF UNIT BY PCT BY WHEELCHAIR.
[2024-01-19 16:49] LABS: BASO % 0.4 % (0.0-2.0); EOS # 0.1 K/mm3 (0.0-0.7); EOS % 1.1 % (0.0-4.0); GRAN # 1.3 K/mm3 (1.4-6.5); GRAN % 27.1 % (42.2-75.2); LYMPH % 64.7 % (20.0-51.0); MEAN CELL VOLUME 88 fl (80.0-100.0); MEAN CORPUSCULAR HGB CONC 34 g/dl (33.0-37.0); MEAN PLATELET VOLUME 11.3 fl (7.4-10.4); MONO # 0.3 K/mm3 (0.1-0.6); MONO % 6.7 % (1.7-9.3); PLATELET COUNT 263 K/mm3 (130-400); RED BLOOD COUNT 3.23 M/mm3 (4.20-5.60); REDCELL DISTRIBUTION WIDTH-CV 11.8 % (11.5-14.5)
[2024-01-19 16:50] LABS: HEMATOCRIT 28.5 % (42.0-52.0); HEMOGLOBIN 9.7 g/dl (13.5-18.0); MEAN CORPUSCULAR HEMOGLOBIN 30 pg (27-31)
== END 2024-01-19 11:30 | disposition home or self-care (01) | DRG 74 ==
LOC: COL.ER 20:42 → MEDICAL 01-18 02:08
PROVIDERS: Internal Medicine; ADMIT Internal Medicine
DX: E10.43 Type 1 diabetes mellitus with diabetic autonomic (poly)neuropathy (principal); N17.9 Acute kidney failure, unspecified; Z68.1 Body mass index [BMI] 19.9 or less, adult; K31.84 Gastroparesis; H54.7 Unspecified visual loss; I45.19 Other right bundle-branch block; E86.0 Dehydration; E87.6 Hypokalemia; R91.8 Other nonspecific abnormal finding of lung field; G43.009 Migraine without aura, not intractable, without status migrainosus; R63.6 Underweight; F17.210 Nicotine dependence, cigarettes, uncomplicated; I10 Essential (primary) hypertension; Z88.6 Allergy status to analgesic agent; Z88.1 Allergy status to other antibiotic agents; Z88.0 Allergy status to penicillin; Z79.899 Other long term (current) drug therapy; Z79.4 Long term (current) use of insulin
CPT/HCPCS: C9113; J1200; J1644; J1815; J1885; J2765; J3475; J3480; J7030; J7120

== ENCOUNTER 2024-02-17 19:04 | Emergency (ER) | payer MEDICARE, MEDICAID ==
[~2024-02-17] VITALS: Ht 180.3 cm; Wt 72.7 kg
[~2024-02-17 19:04] MED LIST changes: +REFRESH TEARS 330 ML OP
[2024-02-17 19:11] VITALS: TEMP 99.3
[2024-02-17 19:26] LABS: BASO % 0.3 % (0.0-2.0); GRAN # 5.6 K/mm3 (1.4-6.5); GRAN % 73.2 % (42.2-75.2); HEMOGLOBIN 12.2 g/dl (13.5-18.0); LYMPH # 1.6 K/mm3 (1.2-3.4); LYMPH % 21.3 % (20.0-51.0); MEAN CELL VOLUME 87 fl (80.0-100.0); MEAN CORPUSCULAR HEMOGLOBIN 31 pg (27-31); MEAN CORPUSCULAR HGB CONC 35 g/dl (33.0-37.0); MEAN PLATELET VOLUME 10.4 fl (7.4-10.4); MONO # 0.4 K/mm3 (0.1-0.6); MONO % 4.9 % (1.7-9.3); PLATELET COUNT 298 K/mm3 (130-400); RED BLOOD COUNT 3.99 M/mm3 (4.20-5.60); REDCELL DISTRIBUTION WIDTH-CV 11.6 % (11.5-14.5)
[2024-02-17 19:29] LABS: HEMATOCRIT 34.8 % (42.0-52.0)
[2024-02-17] MEDS ORDERED: hydrALAZINE 20 MG/ML 1 ML VIAL IV ONE (19:30)
[2024-02-17] MEDS ORDERED: Promethazine 50 MG/ML 1 ML VIAL IM ONE (19:30)
[2024-02-17] MEDS ORDERED: NS 1,000 ML IV ONE ×2 (19:30→20:30)
[2024-02-17 19:33] LABS: ACETONE,SERUM NEGATIVE
[2024-02-17 19:39] LABS: ALANINE AMINOTRANSFERASE 42 U/L (0-55); ALBUMIN 4.2 g/dL (3.5-5.0); ALKALINE PHOSPHATASE 100 U/L (40-150); ANION GAP 13 mmol/L (7-16); AST,SGOT 21 U/L (5-34); BILIRUBIN,TOTAL 1.2 mg/dL (0.2-1.2); BLOOD UREA NITROGEN 30 mg/dL (9-21); C-REACTIVE PROTEIN 0.15 mg/dL (0.00-0.50); CALCIUM 9.7 mg/dL (8.4-10.2); CHLORIDE 99 mEq/L (98-107); CREATININE, serum 1.48 mg/dL (0.72-1.25); GLUCOSE 330 mg/dL (70-99); LIPASE 23 U/L (8-78); POTASSIUM 3.7 mEq/L (3.5-4.5); SODIUM 133 mEq/L (136-145); TOTAL PROTEIN 7.7 g/dl (6.2-8.1)
[2024-02-17] MEDS ORDERED: Morphine 4 MG/ML VIAL IV ONE (19:45)
[2024-02-17] MEDS ORDERED: Metoprolol Tartrate 5 MG/5 ML VIAL IV ONE (20:30)
[2024-02-17] MEDS ORDERED: Mag/Al Hydrox/Simeth Susp 30 ML CUP PO ONE (20:30)
[2024-02-17 22:35] LABS: COLLECTION METHOD CLEAN CATCH
[2024-02-17] MEDS ORDERED: Ketorolac 15 MG/ML VIAL IV ONE (22:45)
[2024-02-17 22:47] LABS: PH 5.5 (5.0-8.5); URINE APPEARANCE CLEAR (CLEAR/HAZY); URINE BLOOD NEGATIVE (NEGATIVE); URINE COLOR YELLOW (YELLOW); URINE GLUCOSE 3+ (NEGATIVE); URINE KETONE NEGATIVE (NEGATIVE); URINE NITRATE NEGATIVE (NEGATIVE); URINE PROTEIN(semi-quant) TRACE (NEGATIVE); URINE UROBILINOGEN 0.2 E.U/dL (0.2-1.0)
[2024-02-17 22:59] LABS: MUCOUS PRESENT (NOT PRESENT); SQUAMOUS EPITHELIAL 0-2 /hpf (0-10); URINE BACTERIA RARE /hpf (NONE SEEN); URINE RBC 0-2 /hpf (0-2); URINE WBC 0-2 /hpf (0-2)
[2024-02-17] MEDS ORDERED: Home Promethazine 25 MG #1 SUPP/PACK RC ONE (23:45)
[2024-02-17] MEDS ORDERED: PHENERGAN25 MG RC (23:48)
[2024-02-18 00:19] VITALS: BP 151/109; PULSE 114
[2024-02-18] MEDS ORDERED: Dicyclomine 10 MG CAP PO ONE (23:45)
== END 2024-02-18 00:19 | disposition home or self-care (01) ==
LOC: COL.ER 19:04
PROVIDERS: Nurse Practitioner
DX: K31.84 Gastroparesis (principal)
CPT/HCPCS: J0360; J1885; J2270; J2550; J7030

== ENCOUNTER 2024-04-14 17:47 | Emergency (ER) | payer MEDICARE, MEDICAID ==
[~2024-04-14] VITALS: Ht 182.9 cm; Wt 75.0 kg
[~2024-04-14 17:47] MED LIST changes: +PHENERGAN25 MG RC
[2024-04-14 17:52] VITALS: BP 108/58; TEMP 99
[2024-04-14] MEDS ORDERED: CEPHALEXIN500 M1 PO (19:05)
[2024-04-14 19:11] VITALS: PULSE 84
[2024-04-14] MEDS ORDERED: Cephalexin 500 MG CAP PO ONE (19:15)
== END 2024-04-14 19:12 | disposition home or self-care (01) ==
LOC: COL.ER 17:47
DX: L73.9 Follicular disorder, unspecified (principal); Z88.0 Allergy status to penicillin; Z88.1 Allergy status to other antibiotic agents